=== PATIENT | male | born 1985 | race African-American/Black ===

== ENCOUNTER 2019-11-30 12:08 | Emergency (ER) | payer BC ==
[~2019-11-30] VITALS: Ht 172.7 cm; Wt 68.6 kg
[2019-11-30 14:35] VITALS: BP 123/71
== END 2019-11-30 14:52 | disposition home or self-care (01) ==
LOC: EMS 12:08
DX: K64.8 Other hemorrhoids (principal); I86.1 Scrotal varices
CPT/HCPCS: 99283; Z7502